=== PATIENT | male | born 1935 | race Caucasian/White ===

== ENCOUNTER 2019-07-27 17:21 | Emergency (ER) | payer MEDICARE ==
[~2019-07-27] VITALS: Ht 177.8 cm; Wt 100.7 kg
[2019-07-27] MEDS ORDERED: GLYBURIDE 1.21.25 M1 PO (17:51)
[2019-07-27] MEDS ORDERED: LASIX 40 MG TAB40 MG PO (17:52)
[2019-07-27] MEDS ORDERED: CRESTOR5 MG PO (17:52)
[2019-07-27] MEDS ORDERED: COZAAR 25 MG TA25 M1 PO (17:52)
[2019-07-27] MEDS ORDERED: TOPROL XL25 MG PO (17:52)
[2019-07-27] MEDS ORDERED: HUMALOG100 UNIT/1 SUBQ (17:52)
[2019-07-27] MEDS ORDERED: METFORMIN HCL500 M3 PO (17:52)
[2019-07-27] MEDS ORDERED: FLOMAX0.4 MG PO (17:52)
[2019-07-27] MEDS ORDERED: KEFLEX500 M1 PO (18:50)
[2019-07-27] MEDS ORDERED: TRAMADOL 50 MG50 MG PO (18:50)
[2019-07-27 19:15] VITALS: BP 123/54
== END 2019-07-27 19:16 | disposition home or self-care (01) ==
LOC: M.ERS 17:21
DX: S61.012A Laceration without foreign body of left thumb without damage to nail, initial encounter (principal); S01.312A Laceration without foreign body of left ear, initial encounter; W22.8XXA Striking against or struck by other objects, initial encounter; Y93.89 Activity, other specified; Y92.89 Other specified places as the place of occurrence of the external cause; Y99.8 Other external cause status

== ENCOUNTER 2019-08-08 09:08 | Emergency (ER) | payer MEDICARE ==
[~2019-08-08] VITALS: Ht 177.8 cm; Wt 104.3 kg
[~2019-08-08 09:08] MED LIST: COZAAR 25 MG TA25 M1 PO; CRESTOR5 MG PO; FLOMAX0.4 MG PO; GLYBURIDE 1.21.25 M1 PO; HUMALOG100 UNIT/1 SUBQ; KEFLEX500 M1 PO; LASIX 40 MG TAB40 MG PO; METFORMIN HCL500 M3 PO; TOPROL XL25 MG PO; TRAMADOL 50 MG50 MG PO
[2019-08-08 09:51] VITALS: BP 140/70
== END 2019-08-08 09:51 | disposition home or self-care (01) ==
LOC: M.ERS 09:08
DX: S61.412D Laceration without foreign body of left hand, subsequent encounter (principal); E11.9 Type 2 diabetes mellitus without complications; I10 Essential (primary) hypertension; E78.00 Pure hypercholesterolemia, unspecified; Z79.4 Long term (current) use of insulin; X58.XXXD Exposure to other specified factors, subsequent encounter

== ENCOUNTER 2019-09-02 09:23 | Emergency (ER) | payer MEDICARE ==
[~2019-09-02] VITALS: Ht 175.3 cm; Wt 99.8 kg
[2019-09-02] MEDS ORDERED: DOXYCYCLINE 10100 M2 PO (10:48)
[2019-09-02 11:05] VITALS: BP 143/69
== END 2019-09-02 11:05 | disposition home or self-care (01) ==
LOC: M.ERS 09:23
DX: M13.842 Other specified arthritis, left hand (principal); L03.114 Cellulitis of left upper limb; I10 Essential (primary) hypertension; E11.9 Type 2 diabetes mellitus without complications; E78.00 Pure hypercholesterolemia, unspecified